=== PATIENT | female | born 2000 | race Caucasian/White ===

== ENCOUNTER 2022-04-15 17:35 | Emergency (ER) | payer OTHER ==
[2022-04-15] MEDS ORDERED: PANTOPRAZOLE 40 MG/10 ML VIAL IVP STA (17:42)
[2022-04-15] MEDS ORDERED: SODIUM CHLORIDE 0.9% 1,000 ML IV STA (17:42)
[2022-04-15] MEDS ORDERED: ONDANSETRON 4 MG/2 ML VIAL IVP STA (17:42)
[2022-04-15] MEDS ORDERED: MORPHINE SULFATE 2 MG/ML SYRINGE IVP STA (17:42)
[2022-04-15 17:46] VITALS: TEMP 97.4
--- NOTE | 2022-04-15 17:50 | ED ---
General Adult HPI - General Chief complaint: Abdominal Pain Stated complaint: Flank pain Time Seen by Provider: 04/15/22 17:42 Source: patient, EMS, RN notes reviewed, old records reviewed Mode of arrival: EMS Limitations: no limitations - History of Present Illness Initial comments: Patient is a 21-year-old female who presents emergency Department complaining of sudden onset right sided flank and abdominal pain. Patient states she was shopping at [employer] when suddenly she experienced acute right lower quadrant and right flank sharp, throbbing abdominal pain. She states it was so bad that she do some the ground. EMS was called and she was brought here for evaluation. Received Toradol and route to the hospital. Nurses mild nausea associated with the pain. Denies any other associated symptoms. States she has had no other symptoms at home prior to the sudden onset of the pain. Denies history of chest pain, shortness breath, other abdominal pain. Has had no dysuria or hematuria. Denies being . Has had no vaginal discharge or bleeding. Uncertain of LMP. Denies diarrhea. His no other acute complaints at this time. Patient states the pain is improving at this time, however she is uncertain what may have caused the pain. Denies any known history of ovarian cyst. No significant past medical history otherwise. - Related Data Allergies Allergy/AdvReac Type Severity Reaction Status Date / Time ibuprofen [From Motrin] Allergy Rash/Hives Verified 04/15/22 17:47 Penicillins Allergy Rash/Hives Verified 04/15/22 17:47 Review of Systems ROS Statement: Those systems with pertinent positive or pertinent negative responses have been documented in the HPI. Review of Systems: CONST: Denies fever EYES: Denies blurry vision ENT: Denies nasal congestion C/V: Denies Chest pain RESP: Denies shortness of breath GI: Endorses abdominal pain. : Denies dysuria SKIN: Denies rash. MSK: Denies joint pain. NEURO: Denies headache ROS Other: All systems not noted in ROS Statement are negative. Past Medical History Past Medical History: Asthma History of Any Multi-Drug Resistant Organisms: None Reported Additional Past Surgical History / Comment(s): Eye surgery. Smoking Status: Current every day smoker Past Alcohol Use History: None Reported Past Drug Use History: None Reported General Exam - General Exam Comments Initial Comments: General: Appears in mild distress secondary to abdominal pain.. HEAD: Normal with no signs of head trauma. EYES: PERRLA, EOMI, conjunctiva normal, no discharge. ENT: Hearing grossly intact, normal oropharynx. RESPIRATORY: Clear breath sounds bilaterally. No wheezes, rales, or rhonchi. C/V: Regular rate and rhythm. S1 and S2 auscultated, no edema, peripheral pulses 2+ and intact throughout ABD: Abdomen is soft, nondistended. Mild tenderness to palpation in the right flank primarily. McBurney's point negative. Mild right adnexal tenderness. No guarding. No peritoneal signs. No rebound tenderness. No CVA tenderness to percussion. EXT: Normal range of motion, no obvious deformity SKIN: No rashes or lesions observed on exposed skin. NEURO: Alert and oriented 4. Limitations: no limitations Course Vital Signs 04/15/22 17:37 Temperature 97.4 F L Pulse Rate 74 Respiratory 20 Rate Blood Pressure 105/69 O2 Sat by Pulse 100 Oximetry Medical Decision Making - Medical Decision Making Based on the patient's presentation and physical exam, I am concerned for acute intra-abdominal process for current symptoms. Differential includes possible torsion versus kidney stone versus other etiology. She'll be symptomatically treated and we will obtain abdominal laboratory studies. We will obtain an ultrasound to evaluate for torsion as well as an ultrasound to evaluate for hydronephrosis. She was in agreement this plan. Vital signs within normal l imits and stable at this time. Patient's laboratory studies are remarkable for a slightly elevated lactic acid of 2.7 which is likely secondary to dehydration. Remainder the labs are unremarkable. This includes a negative test. Urinalysis is still pending at this time. Patient will be administered additional IV fluids as well as awaiting the pelvic ultrasound, however renal ultrasound shows very mild hydronephrosis on the right side. Abdominal x-ray shows no acute intra-abdominal process. On reevaluation, patient's vital signs remained within normal limits and she states her pain has mostly improved. Patient's family now presents. Family states that there is a history of kidney stones in the family. No other significant history. Patient's ultrasound showed no signs of torsion. Pelvic ultrasound within normal limits. On reevaluation, patient's pain has completely resolved. She is symptom free. Urine is still pending at this time. I discussed with family members that due to her negative workup, including symptom being symptom free at this time I believe it is safer to be discharged home with follow-up. They were in agreement this plan. We will check urine prior to discharge.She does have a mild hydronephrosis which could represent a small kidney stone, however it is not large enough to be causing significant issues at this time.Patient's urin alysis was not run due to a small sample of urine. His patient is currently asymptomatic, with no dysuria, hematuria, other urinary symptoms at this time. I did discuss with her as well as her mother and an agreement was made that she can follow up with her PCP if there is any concern. They were in agreement this plan. Strict return precautions including nausea, vomiting, fevers, intractable pain. I believe it is safer to be discharged home at this time. We discussed that it is possible she may have had a small kidney stone at the very slight hydronephrosis on the right side, otherwise workup is unremarkable. Patient is completely pain-free since early on in her stay. I instructed the patient to follow up with their PCP in the next 3 days. I explained that the patient should return to the emergency department if they experience any worsening symptoms. Strict return precautions were discussed with the patient. The patient expressed understanding of these instructions. I answered all questions that the patient had. The patient was discharged home in good condition with their prescriptions and follow up information. - Lab Data Result diagrams: 04/15/22 17:50 04/15/22 17:50 Lab Results 04/15/22 04/15/22 04/15/22 Range/Units 17:50 17:50 17:50 WBC 9.1 (4.0-11.0) k/uL RBC 4.61 (3.80-5.40) m/uL Hgb 14.1 (11.4-16.0) gm/dL Hct 42.9 (34.0-46.0) % MCV 93.1 (80.0-100.0) fL MCH 30.6 (25.0-35.0) pg MCHC 32.9 (31.0-37.0) g/dL RDW 12.7 (11.5-15.5) % Plt Count 280 (150-450) k/uL MPV 9.3 Neutrophils % 62 % Lymphocytes % 30 % Monocytes % 4 % Eosinophils % 1 % Basophils % 1 % Neutrophils # 5.6 (1.3-7.7) k/uL Lymphocytes # 2.8 (1.0-4.8) k/uL Monocytes # 0.4 (0-1.0) k/uL Eosinophils # 0.1 (0-0.7) k/uL Basophils # 0.0 (0-0.2) k/uL PT 11.6 (9.0-12.0) sec INR 1.1 (<1.2) APTT 22.4 (22.0-30.0) sec Sodium 139 (137-145) mmol/L Potassium 4.1 (3.5-5.1) mmol/L Chloride 111 H (98-107) mmol/L Carbon Dioxide 18 L (22-30) mmol/L Anion Gap 10 mmol/L BUN 16 (7-17) mg/dL Creatinine 1.04 (0.52-1.04) mg/dL Est GFR (CKD-EPI)AfAm 90 (>60 ml/min/1.73 sqM) Est GFR (CKD-EPI)NonAf 78 (>60 ml/min/1.73 sqM) Glucose 124 H (74-99) mg/dL Lactic Ac Sepsis Rflx Plasma Lactic Acid Hector (0.7-2.0) mmol/L Calcium 9.2 (8.4-10.2) mg/dL Total Bilirubin 0.5 (0.2-1.3) mg/dL AST 25 (14-36) U/L ALT 16 (4-34) U/L Alkaline Phosphatase 66 (38-126) U/L Total Protein 6.6 (6.3-8.2) g/dL Albumin 4.1 (3.5-5.0) g/dL Amylase 42 (30-110) U/L Lipase 109 (23-300) U/L HCG, Qual Not Detected 04/15/22 04/15/22 Range/Units 17:50 18:26 WBC (4.0-11.0) k/uL RBC (3.80-5.40) m/uL Hgb (11.4-16.0) gm/dL Hct (34.0-46.0) % MCV (80.0-100.0) fL MCH (25.0-35.0) pg MCHC (31.0-37.0) g/dL RDW (11.5-15.5) % Plt Count (150-450) k/uL MPV Neutrophils % % Lymphocytes % % Monocytes % % Eosinophils % % Basophils % % Neutrophils # (1.3-7.7) k/uL Lymphocytes # (1.0-4.8) k/uL Monocytes # (0-1.0) k/uL Eosinophils # (0-0.7) k/uL Basophils # (0-0.2) k/uL PT (9.0-12.0) sec INR (<1.2) APTT (22.0-30.0) sec Sodium (137-145) mmol/L Potassium (3.5-5.1) mmol/L Chloride (98-107) mmol/L Carbon Dioxide (22-30) mmol/L Anion Gap mmol/L BUN (7-17) mg/dL Creatinine (0.52-1.04) mg/dL Est GFR (CKD-EPI)AfAm (>60 ml/min/1.73 sqM) Est GFR (CKD-EPI)NonAf (>60 ml/min/1.73 sqM) Glucose (74-99) mg/dL Lactic Ac Sepsis Rflx Y Plasma Lactic Acid Hector 2.7 H* (0.7-2.0) mmol/L Calcium (8.4-10.2) mg/dL Total Bilirubin (0.2-1.3) mg/dL AST (14-36) U/L ALT (4-34) U/L Alkaline Phosphatase (38-126) U/L Total Protein (6.3-8.2) g/dL Albumin (3.5-5.0) g/dL Amylase (30-110) U/L Lipase (23-300) U/L HCG, Qual Disposition Clinical Impression: Abdominal pain of unknown etiology Disposition: HOME SELF-CARE Condition: Good Instructions (If sedation given, give patient instructions): Abdominal Pain (ED) Is patient prescribed a controlled substance at d/c from ED?: No Referrals: Ky Jesus MD [Primary Care Provider] - 1-2 days Time of Disposition: 20:20
[2022-04-15 18:05] LABS: Basophils % (A) 1 %; Eosinophils # (A) 0.1 k/uL (0-0.7); Eosinophils % (A) 1 %; HCT 42.9 % (34.0-46.0); HGB 14.1 gm/dL (11.4-16.0); Lymphocytes # (A) 2.8 k/uL (1.0-4.8); Lymphocytes % (A) 30 %; MCH 30.6 pg (25.0-35.0); MCHC 32.9 g/dL (31.0-37.0); MCV 93.1 fL (80.0-100.0); Mean Platelet Volume 9.3; Monocytes # (A) 0.4 k/uL (0-1.0); Monocytes % (A) 4 %; Neutrophils # (A) 5.6 k/uL (1.3-7.7); Neutrophils % (A) 62 %; Platelet Count 280 k/uL (150-450); RBC 4.61 m/uL (3.80-5.40); RDW 12.7 % (11.5-15.5); WBC 9.1 k/uL (4.0-11.0)
[2022-04-15] MEDS ORDERED: SODIUM CHLORIDE 0.9% 500 ML 500 ML IV STA (18:18)
[2022-04-15 18:19] LABS: ALT 16 U/L (4-34); AST 25 U/L (14-36); African American GFR (CKD) 90 (>60 ml/min/1.73 sqM); Albumin 4.1 g/dL (3.5-5.0); Alkaline Phosphatase 66 U/L (38-126); Amylase 42 U/L (30-110); Anion Gap 10 mmol/L; Blood Urea Nitrogen 16 mg/dL (7-17); Calcium 9.2 mg/dL (8.4-10.2); Carbon Dioxide 18 mmol/L (22-30); Chloride 111 mmol/L (98-107); Glucose 124 mg/dL (74-99); Lipase 109 U/L (23-300); Non-African American GFR(CKD) 78 (>60 ml/min/1.73 sqM); Potassium 4.1 mmol/L (3.5-5.1); Sodium 139 mmol/L (137-145); Total Bilirubin 0.5 mg/dL (0.2-1.3); Total Protein 6.6 g/dL (6.3-8.2)
[2022-04-15 18:20] LABS: HCG,Qualitative Serum Not Detected
[2022-04-15 18:22] LABS: INR 1.1 (<1.2); Partial Thromboplastin Time 22.4 sec (22.0-30.0); Prothrombin Time 11.6 sec (9.0-12.0)
--- NOTE | 2022-04-15 18:33 | US ---
EXAMINATION TYPE: US renals and bladder DATE OF EXAM: 04/15/2022 COMPARISON: NONE CLINICAL HISTORY: right sided pain/flank pain. eval for hydroneph. acute onset of right flank/pelvic pain tonight, family h/o renal stones EXAM MEASUREMENTS: Right Kidney: 10.0 x 4.7 x 4.5 cm Left Kidney: 10.9 x 4.8 x 4.3 cm Right Kidney: Mild hydronephrosis Left Kidney: No hydronephrosis or masses seen Bladder: not distended IMPRESSION: No evidence of a renal mass. There is some minimal right-sided hydronephrosis.
--- NOTE | 2022-04-15 18:37 | XR ---
EXAMINATION TYPE: XR KUB DATE OF EXAM: 04/15/2022 COMPARISON: NONE HISTORY: Pain TECHNIQUE: 2 views FINDINGS: 2 views upright show no sign of intestinal obstruction or pneumoperitoneum. Fecal pattern i s normal. No evidence of a mass. There are no pathologic calcifications over the kidneys. IMPRESSION: Nonacute abdomen.
--- NOTE | 2022-04-15 19:31 | US ---
EXAMINATION TYPE: US pelvic complete DATE OF EXAM: 04/15/2022 COMPARISON: NONE CLINICAL HISTORY: sudden onset right sided pain, eval for torsion. rt flank pain that extends to pelv is, G0, irregular cycles TECHNIQUE: TA. Transabdominal sonographic images of the pelvis were acquired. Patient is not sexua lly active, patient is on Morphine and states she really has to pee, bladder not fully distended, Date of LMP: unknown EXAM MEASUREMENTS: Uterus: 6.3 x 3.7 x 3.3 cm Endometrial Stripe: 0.6 cm Right Ovary: 3.8 x 2.9 x 2.1 cm Left Ovary: 3.1 x 2.2 x 1.7 cm 1. Uterus: Anteverted wnl 2. Endometrium: wnl 3. Right Ovary: wnl 4. Left Ovary: 2.0 dominate follicle versus small cyst Spectral, color and waveform doppler imaging shows good arterial and venous flow within the ovaries ; there is no evidence for ovarian torsion. 5. Bilateral Adnexa: wnl 6. Posterior cul-de-sac: wnl IMPRESSION: No solid adnexal mass or free fluid. No evidence of ovarian torsion. Normal uterus.
[2022-04-15 20:47] VITALS: BP 119/79; PULSE 75; RESP 18
== END 2022-04-15 20:49 | disposition home or self-care (01) ==
LOC: EC 17:35
DX: R10.9 Unspecified abdominal pain (principal); J45.909 Unspecified asthma, uncomplicated; F17.200 Nicotine dependence, unspecified, uncomplicated; Z88.0 Allergy status to penicillin; Z88.6 Allergy status to analgesic agent
CPT/HCPCS: 99284; 96374; 96375; 96361; 36415; 80053; 82150; 83605; 83690; 85025; 85610; 85730; 84703; 74018; 93975; 76856; 76770; J2405; J2270; C9113

== ENCOUNTER 2023-08-07 09:23 | Emergency (ER) | payer OTHER ==
[2023-08-07 09:46] VITALS: RESP 18
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
[2023-08-07 10:57] VITALS: PULSE 72; TEMP 98.1
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
[2023-08-07 11:32] VITALS: BP 108/74
== END 2023-08-07 11:25 | disposition home or self-care (01) ==
LOC: EC 09:23
DX: S80.02XA Contusion of left knee, initial encounter (principal); S20.212A Contusion of left front wall of thorax, initial encounter; S50.312A Abrasion of left elbow, initial encounter; M54.2 Cervicalgia; J45.909 Unspecified asthma, uncomplicated; F17.200 Nicotine dependence, unspecified, uncomplicated; Z88.0 Allergy status to penicillin; Z88.6 Allergy status to analgesic agent; V49.40XA Driver injured in collision with unspecified motor vehicles in traffic accident, initial encounter; Y92.410 Unspecified street and highway as the place of occurrence of the external cause
CPT/HCPCS: 70450; 71045; 72125; 99284

== ENCOUNTER 2023-09-28 13:13 | Emergency (ER) | payer OTHER ==
[2023-09-28] MEDS ORDERED: ALBUTEROL NEBULIZED 2.5 MG/3 ML INHALATION STA (13:39)
[2023-09-28] MEDS ORDERED: predniSONE 20 MG TAB PO STA (13:39)
[2023-09-28] MEDS ORDERED: IPRATROPIUM-ALBUTEROL 3 ML NEB INHALATION STA (13:39)
[2023-09-28 13:42] VITALS: BP 137/88; TEMP 97.4
--- NOTE | 2023-09-28 13:56 | XR ---
EXAMINATION TYPE: XR chest 2V DATE OF EXAM: 09/28/2023 COMPARISON: 08/07/23 HISTORY: Chest pain TECHNIQUE: Frontal and lateral views of the chest are obtained. FINDINGS: There is no focal air space opacity. No evidence for pneumothorax. No pleural effusion. The cardiac silhouette size is within normal limits. The osseous structures are grossly intact. IMPRESSION: 1. No acute cardiopulmonary process.
--- NOTE | 2023-09-28 15:11 | ED ---
SOB HPI - General Chief Complaint: Shortness of Breath Stated Complaint: LUIS,Asthma Time Seen by Provider: 09/28/23 13:25 Source: patient Mode of arrival: ambulatory Limitations: no limitations - History of Present Illness Initial Comments: 23-year-old female with past medical history of mild intermittent asthma who presents emergency department reporting asthma exacerbation. States that her breathing has been worse for the past 2 days. She does have a rescue inhaler which she has been using throughout the day without any improvement in her symptoms. She normally only uses the inhaler when needed. She also takes Symbicort. She denies any new environmental exposures. Admits to a mild nonproductive cough. No sick contacts. No fevers. Denies any chest pain. She has never been hospitalized for her breathing. She has never been on life support. She does not follow with a judge. No use of steroids that she can remember. No current use of antibiotics. Denies any concern for . No other alleviating, precipitating or modifying factors - Related Data Previous Rx's Medication Instructions Recorded Albuterol Inhaler [Ventolin Hfa 2 puff INHALATION Q4HR #1 each 09/28/23 Inhaler] predniSONE [Deltasone] 20 mg PO BID #10 tab 09/28/23 Allergies Allergy/AdvReac Type Severity Reaction Status Date / Time ibuprofen [From Motrin] Allergy Rash/Hives Verified 09/28/23 13:18 Penicillins Allergy Rash/Hives Verified 09/28/23 13:18 Review of Systems ROS Statement: Those systems with pertinent positive or pertinent negative responses have been documented in the HPI. ROS Other: All systems not noted in ROS Statement are negative. Past Medical History Past Medical History: Asthma History of Any Multi-Drug Resistant Organisms: None Reported Additional Past Surgical History / Comment(s): Eye surgery. Past Psychological History: No Psychological Hx Reported Smoking Status: Current every day smoker Past Alcohol Use History: None Reported Past Drug Use History: None Reported General Exam Limitations: no limitations General appearance: alert, in no apparent distress Head exam: Present: atraumatic, normocephalic, normal inspection Eye exam: Present: normal appearance, PERRL, EOMI. Absent: scleral icterus, conjunctival injection, periorbital swelling ENT exam: Present: normal exam, mucous membranes moist Neck exam: Present: normal inspection. Absent: tenderness, meningismus, lymphadenopathy Respiratory exam: Present: wheezes (At the apices), decreased breath sounds (At the bases). Absent: respiratory distress, rales, rhonchi, stridor Cardiovascular Exam: Present: regular rate, normal rhythm, normal heart sounds. Absent: systolic murmur, diastolic murmur, rubs, gallop, clicks GI/Abdominal exam: Present: soft, normal bowel sounds. Absent: distended, tenderness, guarding, rebound, rigid Extremities exam: Present: normal inspection, full ROM, normal capillary refill. Absent: tenderness, pedal edema, joint swelling, calf tenderness Back exam: Present: normal inspection Neurological exam: Present: alert, oriented X3, CN II-XII intact Psychiatric exam: Present: normal affect, normal mood Skin exam: Present: warm, dry, intact, normal color. Absent: rash Course Vital Signs 09/28/23 09/28/23 09/28/23 13:15 14:30 14:45 Temperature 97.4 F L Pulse Rate 84 87 99 Respiratory 20 Rate Blood Pressure 137/88 O2 Sat by Pulse 98 Oximetry 09/28/23 15:26 Temperature Pulse Rate 87 Respiratory 18 Rate Blood Pressure O2 Sat by Pulse 97 Oximetry Medical Decision Making - Medical Decision Making Was pt. sent in by a medical professional or institution (, PA, MICROPHONE OPERATOR, urgent care, hospital, or longterm...) When possible be specific @ -No Did you speak to anyone other than the patient for history (EMS, parent, family, police, friend...)? What history was obtained from this source @ -No Did you review nursing and triage notes (agree or disagree)? Why? @ -I reviewed and agree with nursing and triage notes Were old charts reviewed (outside hosp., previous admission, EMS record, old EKG, old radiological studies, urgent care reports/EKG's, longterm records)? Report findings @ -No old charts were reviewed Differential Diagnosis (chest pain, altered mental status, abdominal pain women, abdominal pain men, vaginal bleeding, weakness, fever, dyspnea, syncope, headache, dizziness, GI bleed, back pain, seizure, CVA, palpatations, mental health, musculoskeletal)? @ Differential Dyspnea: Coronary syndrome, arrhythmia, tamponade, asthma, COPD, pulmonary embolism, pneumonia, pneumothorax, pulmonary effusion, anaphylaxis, diabetic ketoacidosis, flailed chest, pulmonary contusion, diaphragmatic rupture, anemia, neuromuscular, this is not meant to be an all-inclusive list. EKG interpreted by me (3pts min.). @ -Not done X-rays interpreted by me (1pt min.). @ -Yes and demonstrates no acute intrathoracic process CT interpreted by me (1pt min.). @ -None done U/S interpreted by me (1pt. min.). @ -None done What testing was considered but not performed or refused? (CT, X-rays, U/S, labs)? Why? @ -None What meds were considered but not given or refused? Why? @ -None Did you discuss the management of the patient with other professionals (professionals i.e. , PA, MICROPHONE OPERATOR, lab, RT, psych nurse, neonatal social worker, jack machine operator, teacher, control officer, disability case manager)? Give summary @ -No Was smoking cessation discussed for >3mins.? @ -No Was critical care preformed (if so, how long)? @ -No Were there social determinants of health that impacted care today? How? (Homelessness, low income, unemployed, alcoholism, drug addiction, transportation, low edu. Level, literacy, decrease access to med. care, nursing home, rehab)? @ -No Was there de-escalation of care discussed even if they declined (Discuss DNR or withdrawal of care, Hospice)? DNR status @ -No What co-morbidities impacted this encounter? (DM, HTN, Smoking, COPD, CAD, Cancer, CVA, ARF, Chemo, Hep., AIDS, mental health diagnosis, sleep apnea, morbid obesity)? @ -asthma Was patient admitted / discharged? Hospital course, mention meds given and route, prescriptions, significant lab abnormalities, going to OR and other pertinent info. @ -Upon arrival patient was placed into room 29. Thorough history and physical exam was performed. Patient does have wheezing at the apex with diminished breath sounds at the bases. She was given a DuoNeb breathing treatment followed by an OB drop treatment. She is administered 60 mg of prednisone. Covid is obtained and is negative. Chest x-ray demonstrates no acute process. Patient reevaluated and states that she has improvement in her breathing. She does have improved aeration. I did discuss the results with the patient. At this time she is stable for discharge home. She'll be placed on prednisone 20 mg twice daily which she is to start tomorrow. She is to use her inhaler which I will refill every 4 hours. Instructed to return should she have no improvement or worsening symptoms. Patient agreeable to the plan and was discharged in stable condition Undiagnosed new problem with uncertain prognosis? @ -No Drug Therapy requiring intensive monitoring for toxicity (Heparin, Nitro, In sulin, Cardizem)? @ -No Were any procedures done? @ -No Diagnosis/symptom? @ -Acute asthma exacerbation Acute, or Chronic, or Acute on Chronic? @ -Acute on chronic Uncomplicated (without systemic symptoms) or Complicated (systemic symptoms)? @ -Complicated Side effects of treatment? @ -No Exacerbation, Progression, or Severe Exacerbation? @ -Yes Poses a threat to life or bodily function? How? (Chest pain, [place], [place], pneumonia, PE, COPD, DKA, ARF, appy, cholecystitis, CVA, Diverticulitis, Homicidal, Suicidal, threat to staff... and all critical care pts) @ -No - Lab Data Lab Results 09/28/23 Range/Units 13:44 SARS-CoV-2 (PCR) Not Detected (Not Detectd) Disposition Clinical Impression: Acute asthma exacerbation Disposition: HOME SELF-CARE Condition: Stable Instructions (If sedation given, give patient instructions): Asthma (ED) Additional Instructions: Use your inhaler every 4 hours. Start taking the steroids tomorrow as you got you're loading dose in the emergency department. Return should your breathing worsen. Prescriptions: predniSONE [Deltasone] 20 mg PO BID #10 tab Albuterol Inhaler [Ventolin Hfa Inhaler] 2 puff INHALATION Q4HR #1 each Is patient prescribed a controlled substance at d/c from ED?: No Referrals: None,Stated [Primary Care Provider] - 1-2 days Time of Disposition: 15:11
[2023-09-28 15:49] VITALS: PULSE 87; RESP 18
== END 2023-09-28 15:26 | disposition home or self-care (01) ==
LOC: EC 13:13
DX: J45.21 Mild intermittent asthma with (acute) exacerbation (principal); F17.200 Nicotine dependence, unspecified, uncomplicated; Z20.822 Contact with and (suspected) exposure to COVID-19; Z88.0 Allergy status to penicillin; Z88.6 Allergy status to analgesic agent
CPT/HCPCS: 94640; 87635; 71046; 99285; J7512

== ENCOUNTER 2023-10-01 19:40 | Emergency (ER) | payer OTHER ==
--- NOTE | 2023-10-01 20:05 | ED ---
SOB HPI - General Source: patient, RN notes reviewed Mode of arrival: ambulatory Limitations: no limitations - History of Present Illness MD Complaint: shortness of breath <Morena Syed - Last Filed: 10/01/23 20:06> - General Source: patient, family, RN notes reviewed <Levar Dueñas - Last Filed: 10/02/23 01:54> - General Chief Complaint: Shortness of Breath Stated Complaint: sob Time Seen by Provider: 10/01/23 20:02 - History of Present Illness Initial Comments: This is a 23 year old female who presents to the emergency department for shortness of breath. States that she was evaluated here for this a few days ago. She has a history of asthma and is using her rescue inhaler, however this is only effective for about 10 minutes at a time, and then she becomes very winded again. Reports some associated chest discomfort. (Morena Syed) Patient is a 23-year-old female initially evaluated as a quick note. I evaluated the patient when she was placed in a room. Has a history of asthma that is mild and intermittent. Since last she's been feeling more short of breath. Was diagnosed with an asthma exacerbation on Saturday discharged home. However since that time, she states that she does not feel like her inhaler is working. States she gets dyspnea on exertion. States she is having generalized chest tightness as well. Does have a history of anxiety. Is uncertain of this is anxiety causing this. No history of cardiac disease in herself. No history of blood clots, recent long distance travel, leg edema. Presents for further evaluation of this time. Patient originally evaluated as a quick note. I evaluated the patient when she is placed in [facility] after initial viral swabs returned as well as chest x-ray. (Levar Dueñas) - Related Data Previous Rx's Medication Instructions Recorded Albuterol Inhaler [Ventolin Hfa 2 puff INHALATION Q4HR #1 each 09/28/23 Inhaler] predniSONE [Deltasone] 20 mg PO BID #10 tab 09/28/23 Albuterol Inhaler [Ventolin Hfa 1 puff INHALATION QID #8 gm 10/02/23 Inhaler] Azithromycin [Zithromax] 250 mg PO DAILY 4 Days #4 tab 10/02/23 predniSONE [Deltasone] 20 mg PO BID 5 Days #10 tab 10/02/23 Allergies Allergy/AdvReac Type Severity Reaction Status Date / Time ibuprofen [From Motrin] Allergy Rash/Hives Verified 10/01/23 20:04 Penicillins Allergy Rash/Hives Verified 10/01/23 20:04 Review of Systems ROS Other: All systems not noted in ROS Statement are negative. <Morena Syed - Last Filed: 10/01/23 20:06> ROS Other: All systems not noted in ROS Statement are negative. <Levar Dueñas - Last Filed: 10/02/23 01:54> ROS Statement: Those systems with pertinent positive or pertinent negative responses have been documented in the HPI. Review of Systems: CONST: Denies fever EYES: Denies blurry vision ENT: Denies nasal congestion C/V: Denies Chest pain RESP: Endorses shortness of breath GI: Denies abdominal pain : Denies dysuria SKIN: Denies rash. MSK: Denies joint pain. NEURO: Denies headache (Levar Dueñas) Past Medical History Past Medical History: Asthma History of Any Multi-Drug Resistant Organisms: None Reported Additional Past Surgical History / Comment(s): Eye surgery. Past Psychological History: No Psychological Hx Reported Smoking Status: Current every day smoker Past Alcohol Use History: None Reported Past Drug Use History: None Reported <Morena Syed - Last Filed: 10/01/23 20:06> General Exam <Morena Syed - Last Filed: 10/01/23 20:06> <Levar Dueñas - Last Filed: 10/02/23 01:54> - General Exam Comments Initial Comments: Visual Physical Exam Vital signs reviewed General: Well-appearing, nontoxic, no acute distress. Head: Normocephalic, atraumatic Eyes: PERRLA, EOMI ENT: Airway patent Chest: Nonlabored breathing Skin: No visual rash, normal skin tone Neuro: Alert and oriented 3 Musculoskeletal: No gross abnormalities (Morena Syed) General: Appears anxious. HEAD: Normal with no signs of head trauma. EYES: PERRLA, EOMI, conjunctiva normal, no discharge. ENT: Hearing grossly intact, normal oropharynx. RESPIRATORY: Mild bilateral end expiratory wheezing. No rhonchi. No hypoxia. No ambulatory hypoxia. No significant increased work of breathing. C/V: Regular rate and rhythm. S1 and S2 auscultated, no edema, peripheral pulses 2+ and intact throughout ABD: Abd is soft, nontender, nondistended EXT: Normal range of motion, no obvious deformity SKIN: No rashes or lesions observed on exposed skin. NEURO: Alert and oriented 4. (Levar Dueñas) Course Vital Signs 10/01/23 10/01/23 10/02/23 20:02 22:09 00:07 Temperature 98.0 F 97.7 F Pulse Rate 73 67 76 Respiratory 20 22 Rate Blood Pressure 123/80 124/83 O2 Sat by Pulse 96 98 Oximetry 10/02/23 00:14 Temperature Pulse Rate 88 Respiratory Rate Blood Pressure O2 Sat by Pulse Oximetry Medical Decision Making <Morena Syed - Last Filed: 10/01/23 20:06> - Lab Data Result diagrams: 10/01/23 22:40 10/01/23 22:40 - EKG Data -: EKG Interpreted by Me <Levar Dueñas - Last Filed: 10/02/23 01:54> - Medical Decision Making I performed the QuickNote portion of this chart. Signed Morena Syed PA-C. (Morena Syed) Was pt. sent in by a medical professional or institution (INDIRA Major, HYDRAULIC CORRUGATING MACHINE OPERATOR, urgent care, hospital, or skilled nursing...) When possible be specific @ -No Did you speak to anyone other than the patient for history (EMS, parent, family, police, friend...)? What history was obtained from this source @ -No Did you review nursing and triage notes (agree or disagree)? Why? @ -I reviewed and agree with nursing and triage notes Were old charts reviewed (outside hosp., previous admission, EMS record, old EKG, old radiological studies, urgent care reports/EKG's, skilled nursing records)? Report findings @ -Old charts reviewed Differential Diagnosis (chest pain, altered mental status, abdominal pain women, abdominal pain men, vaginal bleeding, weakness, fever, dyspnea, syncope, h eadache, dizziness, GI bleed, back pain, seizure, CVA, palpatations, mental health, musculoskeletal)? @ -Differential dyspnea EKG interpreted by me (3pts min.). @ -As above X-rays interpreted by me (1pt min.). @ -Chest x-ray reveals no obvious acute cardiopulmonary process. CT interpreted by me (1pt min.). @ -None done U/S interpreted by me (1pt. min.). @ -None done What testing was considered but not performed or refused? (CT, X-rays, U/S, labs)? Why? @ -None What meds were considered but not given or refused? Why? @ -None Did you discuss the management of the patient with other professionals (professionals i.e. , PA, HYDRAULIC CORRUGATING MACHINE OPERATOR, lab, RT, psych nurse, manager social work, frame bender, teacher, senior escrow officer, community case manager)? Give summary @ -No Was smoking cessation discussed for >3mins.? @ -No Was critical care preformed (if so, how long)? @ -No Were there social determinants of health that impacted care today? How? (Home lessness, low income, unemployed, alcoholism, drug addiction, transportation, low edu. Level, literacy, decrease access to med. care, halfway, rehab)? @ -No Was there de-escalation of care discussed even if they declined (Discuss DNR or withdrawal of care, Hospice)? DNR status @ -No What co-morbidities impacted this encounter? (DM, HTN, Smoking, COPD, CAD, Cancer, CVA, ARF, Chemo, Hep., AIDS, mental health diagnosis, sleep apnea, morbid obesity)? @ -None Was patient admitted / discharged? Hospital course, mention meds given and route, prescriptions, significant lab abnormalities, going to OR and other pertinent info. @ -Based on the patient's presentation and physical exam, I'm concerned for what seems to be asthma and possible anxiety causing her dyspnea. Exam is relatively unremarkable. Has mild wheezing on exam. Her description of her distress as well as her frequency of using albuterol over the last few days seems to be out of proportion to her describes dyspnea. I did discuss this with her. It could be anxiety is really related to this however I cannot definitively rule out cardiopulmonary etiology. We will obtain blood work as well as an EKG in addition to the chest x-ray which showed no obvious process as well as viral swabs which were negative. She will receive an albuterol inhaler at this time as well. Patient was in agreement this plan. She has been compliant with her steroids at home as well as her inhaler. She will also rec eive a small dose of Ativan. EKG shows no focal findings. No obvious acute ischemia. Workup remarkable for mild leukocytosis of 14 which is likely reactive secondary to daily steroid use. No other findings. Troponin undetectable. BNP normal. D-dimer within normal limits. On reevaluation, I discussed results the patient. She received a DuoNeb. Wheezing is improved. I believe it is safe for her to follow-up with her physician in the next 1-3 days. Strict return precautions discussed. She was in agreement with this plan. I will provide the patient with a prescription for albuterol inhaler, extended prednisone, azithromycin. I instructed the patient to follow up with their PCP in the next 1-3 days . I explained that the patient should return to the emerge ncy department if they experience any worsening symptoms. Strict return precautions were discussed with the patient. The patient expressed understanding of these instructions. I answered all questions that the patient had. The patient was discharged home in good condition with their prescriptions and follow up information. Undiagnosed new problem with uncertain prognosis? @ -No Drug Therapy requiring intensive monitoring for toxicity (Heparin, Nitro, Insulin, Cardizem)? @ -No Were any procedures done? @ -No Diagnosis/symptom? @ -Asthma, tracheobronchitis Acute, or Chronic, or Acute on Chronic? @ -Acute Uncomplicated (without systemic symptoms) or Complicated (systemic symptoms)? @ -complicated Side effects of treatment? @ -none Exacerbation, Progression, or Severe Exacerbation] @ -no Poses a threat to life or bodily function? @ -Unlikely (Levar Dueñas) - Lab Data Lab Results 10/01/23 10/01/23 10/01/23 Range/Units 20:34 22:40 22:40 WBC 14.5 H (3.8-10.6) k/uL RBC 5.55 H (3.80-5.40) m/uL Hgb 16.9 H (11.4-16.0) gm/dL Hct 50.5 H (34.0-46.0) % MCV 90.9 (80.0-100.0) fL MCH 30.3 (25.0-35.0) pg MCHC 33.4 (31.0-37.0) g/dL RDW 12.5 (11.5-15.5) % Plt Count 330 (150-450) k/uL MPV 8.7 Neutrophils % 89 % Lymphocytes % 8 % Monocytes % 2 % Eosinophils % 1 % Basophils % 0 % Neutrophils # 12.9 H (1.3-7.7) k/uL Lymphocytes # 1.2 (1.0-4.8) k/uL Monocytes # 0.3 (0-1.0) k/uL Eosinophils # 0.1 (0-0.7) k/uL Basophils # 0.0 (0-0.2) k/uL PT 10.8 (10.0-12.5) sec INR 1.0 (<1.2) APTT 24.4 (22.0-30.0) sec D-Dimer 0.31 (<0.60) mg/L FEU Sodium (137-145) mmol/L Potassium (3.5-5.1) mmol/L Chloride (98-107) mmol/L Carbon Dioxide (22-30) mmol/L Anion Gap mmol/L BUN (7-17) mg/dL Creatinine (0.52-1.04) mg/dL Est GFR (CKD-EPI)AfAm (>60 ml/min/1.73 sqM) Est GFR (CKD-EPI)NonAf (>60 ml/min/1.73 sqM) Glucose (74-99) mg/dL Calcium (8.4-10.2) mg/dL Total Bilirubin (0.2-1.3) mg/dL AST (14-36) U/L ALT (4-34) U/L Alkaline Phosphatase (38-126) U/L Troponin I (0.000-0.034) ng/mL NT-Pro-B Natriuret Pep pg/mL Total Protein (6.3-8.2) g/dL Albumin (3.5-5.0) g/dL Influenza Type A (PCR) Not Detected (Not Detectd) Influenza Type B (PCR) Not Detected (Not Detectd) RSV (PCR) Not Detected (Not Detectd) SARS-CoV-2 (PCR) Not Detected (Not Detectd) 10/01/23 10/01/23 Range/Units 22:40 22:40 WBC (3.8-10.6) k/uL RBC (3.80-5.40) m/uL Hgb (11.4-16.0) gm/dL Hct (34.0-46.0) % MCV (80.0-100.0) fL MCH (25.0-35.0) pg MCHC (31.0-37.0) g/dL RDW (11.5-15.5) % Plt Count (150-450) k/uL MPV Neutrophils % % Lymphocytes % % Monocytes % % Eosinophils % % Basophils % % Neutrophils # (1.3-7.7) k/uL Lymphocytes # (1.0-4.8) k/uL Monocytes # (0-1.0) k/uL Eosinophils # (0-0.7) k/uL Basophils # (0-0.2) k/uL PT (10.0-12.5) sec INR (<1.2) APTT (22.0-30.0) sec D-Dimer (<0.60) mg/L FEU Sodium 140 (137-145) mmol/L Potassium 4.5 (3.5-5.1) mmol/L Chloride 109 H (98-107) mmol/L Carbon Dioxide 15 L (22-30) mmol/L Anion Gap 16 mmol/L BUN 18 H (7-17) mg/dL Creatinine 0.68 (0.52-1.04) mg/dL Est GFR (CKD-EPI)AfAm >90 (>60 ml/min/1.73 sqM) Est GFR (CKD-EPI)NonAf >90 (>60 ml/min/1.73 sqM) Glucose 118 H (74-99) mg/dL Calcium 10.6 H (8.4-10.2) mg/dL Total Bilirubin 0.5 (0.2-1.3) mg/dL AST 22 (14-36) U/L ALT 23 (4-34) U/L Alkaline Phosphatase 76 (38-126) U/L Troponin I <0.012 (0.000-0.034) ng/mL NT-Pro-B Natriuret Pep 59 pg/mL Total Protein 8.9 H (6.3-8.2) g/dL Albumin 5.1 H (3.5-5.0) g/dL Influenza Type A (PCR) (Not Detectd) Influenza Type B (PCR) (Not Detectd) RSV (PCR) (Not Detectd) SARS-CoV-2 (PCR) (Not Detectd) - EKG Data EKG Comments: 12-lead Electrocardiogram Interpretation Note EKG was reviewed and interpreted by myself. 12-lead ECG performed at 2233 is interpreted by me as revealing normal sinus rhythm at a rate of 72 beats per minute. [place] is rightward deviated. MO interval is 133 ms, QRS duration is 90 ms, QTc is 429 ms. generalized Q waves present with no focal pattern.. There were no ST or T wave abnormalities to suggest myocardial ischemia or injury. R wave progression across the precordium was satisfactory. By my interpretation this EKG is non-diagnostic for acute ischemia. (Levar Dueñas) Disposition <Morena Syed - Last Filed: 10/01/23 20:06> Is patient prescribed a controlled substance at d/c from ED?: No Time of Disposition: 00:21 <Levar Dueñas - Last Filed: 10/02/23 01:54> Clinical Impression: Asthma, Tracheobronchitis Disposition: HOME SELF-CARE Condition: Good Instructions (If sedation given, give patient instructions): Asthma (ED), Acute Bronchitis (ED) Prescriptions: predniSONE [Deltasone] 20 mg PO BID 5 Days #10 tab Albuterol Inhaler [Ventolin Hfa Inhaler] 1 puff INHALATION QID #8 gm Azithromycin [Zithromax] 250 mg PO DAILY 4 Days #4 tab Referrals: Kevin Davis MD [Primary Care Provider] - 1-2 days
--- NOTE | 2023-10-01 20:38 | XR ---
EXAMINATION TYPE: XR chest 2V DATE OF EXAM: 10/01/2023 COMPARISON: 09/28/2023 HISTORY: Chest pain TECHNIQUE: Frontal and lateral views of the chest are obtained. FINDINGS: There is no focal air space opacity. No evidence for pneumothorax. No pleural effusion. The cardiac silhouette size is within normal limits. The osseous structures are grossly intact. IMPRESSION: 1. No acute cardiopulmonary process.
[2023-10-01 22:27] VITALS: BP 124/83; RESP 22; TEMP 97.7
[2023-10-01] MEDS ORDERED: ALBUTEROL HFA INHALER INHALATION STA (22:38)
[2023-10-01] MEDS ORDERED: LORazepam 1 MG TAB PO STA (22:40)
[2023-10-01 23:00] LABS: Basophils % (A) 0 %; Eosinophils # (A) 0.1 k/uL (0-0.7); Eosinophils % (A) 1 %; HCT 50.5 % (34.0-46.0); HGB 16.9 gm/dL (11.4-16.0); Lymphocytes # (A) 1.2 k/uL (1.0-4.8); Lymphocytes % (A) 8 %; MCH 30.3 pg (25.0-35.0); MCHC 33.4 g/dL (31.0-37.0); MCV 90.9 fL (80.0-100.0); Mean Platelet Volume 8.7; Monocytes # (A) 0.3 k/uL (0-1.0); Monocytes % (A) 2 %; Neutrophils # (A) 12.9 k/uL (1.3-7.7); Neutrophils % (A) 89 %; Platelet Count 330 k/uL (150-450); RBC 5.55 m/uL (3.80-5.40); RDW 12.5 % (11.5-15.5); WBC 14.5 k/uL (3.8-10.6)
[2023-10-01 23:09] LABS: ALT 23 U/L (4-34); AST 22 U/L (14-36); African American GFR (CKD) >90 (>60 ml/min/1.73 sqM); Albumin 5.1 g/dL (3.5-5.0); Alkaline Phosphatase 76 U/L (38-126); Anion Gap 16 mmol/L; Blood Urea Nitrogen 18 mg/dL (7-17); Calcium 10.6 mg/dL (8.4-10.2); Carbon Dioxide 15 mmol/L (22-30); Chloride 109 mmol/L (98-107); Glucose 118 mg/dL (74-99); Non-African American GFR(CKD) >90 (>60 ml/min/1.73 sqM); Potassium 4.5 mmol/L (3.5-5.1); Sodium 140 mmol/L (137-145); Total Bilirubin 0.5 mg/dL (0.2-1.3); Total Protein 8.9 g/dL (6.3-8.2)
[2023-10-01 23:13] LABS: Partial Thromboplastin Time 24.4 sec (22.0-30.0); Prothrombin Time 10.8 sec (10.0-12.5)
[2023-10-01 23:17] LABS: NT-Pro-B-Type Natriuretic Pept 59 pg/mL
[2023-10-02] MEDS ORDERED: IPRATROPIUM-ALBUTEROL 3 ML NEB INHALATION STA (00:05)
[2023-10-02 00:23] VITALS: PULSE 88
[2023-10-02] MEDS ORDERED: AZITHROMYCIN 500 MG TAB PO STA (00:25)
== END 2023-10-02 00:45 | disposition home or self-care (01) ==
LOC: SUPCPDRO 19:40 → EC 19:40
DX: J40 Bronchitis, not specified as acute or chronic (principal); F17.200 Nicotine dependence, unspecified, uncomplicated; Z88.0 Allergy status to penicillin; Z88.6 Allergy status to analgesic agent; Z20.822 Contact with and (suspected) exposure to COVID-19
CPT/HCPCS: 36415; 71046; 80053; 83880; 84484; 85025; 85379; 85610; 85730; 87636; 93005; 94640; 99285

== ENCOUNTER 2023-11-19 10:09 | Emergency (ER) | payer OTHER ==
--- NOTE | 2023-11-19 10:38 | ED ---
General Adult HPI - General Chief complaint: Head Injury Stated complaint: head injury-[facility] Time Seen by Provider: 11/19/23 10:36 Source: patient, RN notes reviewed Mode of arrival: ambulatory Limitations: no limitations - History of Present Illness Initial comments: 23 year old female presents to the emergency department for evaluation of head injury. Patient states that she was working when this happened about 2 hours ago. She states that she bent down and stood back up hitting the front of her head on a shelf. She denies loss of consciousness, blood thinners. She admits to some slight nausea. Denies significant headache. - Related Data Previous Rx's Medication Instructions Recorded Albuterol Inhaler [Ventolin Hfa 2 puff INHALATION Q4HR #1 each 09/28/23 Inhaler] predniSONE [Deltasone] 20 mg PO BID #10 tab 09/28/23 Albuterol Inhaler [Ventolin Hfa 1 puff INHALATION QID #8 gm 10/02/23 Inhaler] Azithromycin [Zithromax] 250 mg PO DAILY 4 Days #4 tab 10/02/23 predniSONE [Deltasone] 20 mg PO BID 5 Days #10 tab 10/02/23 Allergies Allergy/AdvReac Type Severity Reaction Status Date / Time ibuprofen [From Motrin] Allergy Rash/Hives Verified 11/19/23 10:24 Penicillins Allergy Rash/Hives Verified 11/19/23 10:24 Review of Systems ROS Statement: Those systems with pertinent positive or pertinent negative responses have been documented in the HPI. ROS Other: All systems not noted in ROS Statement are negative. Past Medical History Past Medical History: Asthma History of Any Multi-Drug Resistant Organisms: None Reported Additional Past Surgical History / Comment(s): Eye surgery. Past Psychological History: No Psychological Hx Reported Smoking Status: Current every day smoker Past Alcohol Use History: None Reported Past Drug Use History: None Reported General Exam - General Exam Comments Initial Comments: Visual Physical Exam Vital signs reviewed General: Well-appearing, nontoxic, no acute distress. Head: Normocephalic, atraumatic Eyes: PERRLA, EOMI ENT: Airway patent Chest: Nonlabored breathing Skin: No visual rash, normal skin tone Neuro: Alert and oriented 3 Musculoskeletal: No gross abnormalities Limitations: no limitations General appearance: alert, in no apparent distress Head exam: Present: atraumatic, normocephalic, normal inspection Eye exam: Present: normal appearance, PERRL, EOMI. Absent: scleral icterus, conjunctival injection, periorbital swelling ENT exam: Present: normal exam, mucous membranes moist, TM's normal bilaterally, normal external ear exam Neck exam: Present: normal inspection, full ROM. Absent: tenderness, meningismus, lymphadenopathy Respiratory exam: Present: normal lung sounds bilaterally. Absent: respiratory distress, wheezes, rales, rhonchi, stridor Cardiovascular Exam: Present: regular rate, normal rhythm, normal heart sounds. Absent: systolic murmur, diastolic murmur, rubs, gallop, clicks Extremities exam: Present: normal inspection, full ROM, normal capillary refill. Absent: tenderness, pedal edema, joint swelling, calf tenderness Back exam: Present: normal inspection Neurological exam: Present: alert, oriented X3, CN II-XII intact, normal gait. Absent: motor sensory deficit Expanded Patient oriented to: Present: person, place, time Speech: Present: fluid speech Cranial nerves: EOM's Intact: Normal, Gag Reflex: Normal, Facial Sensation: Normal Ataxia: Absent: yes Cerebellar function: Finger to Nose: Normal Upper motor neuron: Pronator Drift: Normal Sensory exam: Upper Extremity Light Touch: Normal, Lower Extremity Light Touch: Normal Motor strength exam: RUE: 5, LUE: 5, RLE: 5, LLE: 5 Eye Response: (4) open spontaneously Motor Response: (6) obeys commands Verbal Response: (5) oriented David Total: 15 Psychiatric exam: Present: normal affect, normal mood Course Vital Signs 11/19/23 10:22 Temperature 98 F Pulse Rate 81 Respiratory 20 Rate Blood Pressure 108/73 O2 Sat by Pulse 99 Oximetry Medical Decision Making - Medical Decision Making Quick note preformed by Lola Zepeda PA-C Was pt. sent in by a medical professional or institution ([facility] Major, MEDICATION ASSISTANT, urgent care, hospital, or custodial...) When possible be specific @ -No Did you speak to anyone other than the patient for history (EMS, parent, family, police, friend...)? What history was obtained from this source @ -No Did you review nursing and triage notes (agree or disagree)? Why? @ -I reviewed and agree with nursing and triage notes Were old charts reviewed (outside hosp., previous admission, EMS record, old EKG, old radiological studies, urgent care reports/EKG's, custodial records)? Report findings @ -No old charts were reviewed Differential Diagnosis (chest pain, altered mental status, abdominal pain women, abdominal pain men, vaginal bleeding, weakness, fever, dyspnea, syncope, headache, dizziness, GI bleed, back pain, seizure, CVA, palpatations, mental health, musculoskeletal)? @ -Head injury, concussion, laceration, intracranial hemorrhage, this list is not all-inclusive EKG interpreted by me (3pts min.). @ -none X-rays interpreted by me (1pt min.). @ -None done CT interpreted by me (1pt min.). @ -None done U/S interpreted by me (1pt. min.). @ -None done What testing was considered but not performed or refused? (CT, X-rays, U/S, lab s)? Why? @ -CT considered but decided against based on mechanism and patient symptoms What meds were considered but not given or refused? Why? @ -None Did you discuss the management of the patient with other professionals (professionals i.e. , PA, MEDICATION ASSISTANT, lab, RT, psych nurse, social media editor, director of field sales, teacher, global chief creative officer, case management social worker)? Give summary @ -No Was smoking cessation discussed for >3mins.? @ -No Was critical care preformed (if so, how long)? @ -No Were there social determinants of health that impacted care today? How? (Homelessness, low income, unemployed, alcoholism, drug addiction, transpor tation, low edu. Level, literacy, decrease access to med. care, penitentiary, rehab)? @ -No Was there de-escalation of care discussed even if they declined (Discuss DNR or withdrawal of care, Hospice)? DNR status @ -No What co-morbidities impacted this encounter? (DM, HTN, Smoking, COPD, CAD, Cancer, CVA, ARF, Chemo, Hep., AIDS, mental health diagnosis, sleep apnea, morbid obesity)? @ -None Was patient admitted / discharged? Hospital course, mention meds given and route, prescriptions, significant lab abnormalities, going to OR and other pertinent info. @ -discharged. Patient presented to the emergency department for evaluation of head injury that occurred at 8:30am at her place of employment. Denies loss of consciousness, headache. Neurologically intact. Discussed CT vs monitoring symptoms. Patient understanding and agreeable with no imaging at this time. Strict return precautions discussed. Patient stable at time of discharge. Case discussed with Dr. Price Undiagnosed new problem with uncertain prognosis? @ -No Drug Therapy requiring intensive monitoring for toxicity (Heparin, Nitro, Insulin, Cardizem)? @ -No Were any procedures done? @ -No Diagnosis/symptom? @ -head injury Acute, or Chronic, or Acute on Chronic? @ -acute Uncomplicated (without systemic symptoms) or Complicated (systemic symptoms)? @ -Uncomplicated Side effects of treatment? @ -No Exacerbation, Progression, or Severe Exacerbation? @ -No Poses a threat to life or bodily function? How? (Chest pain, [place], [place], pneumonia, PE, COPD, DKA, ARF, appy, cholecystitis, CVA, Diverticulitis, Homicidal, Suicidal, threat to staff... and all critical care pts) @ -No Disposition Clinical Impression: Closed head injury Disposition: HOME SELF-CARE Condition: Stable Instructions (If sedation given, give patient instructions): Concussion (ED) Additional Instructions: Please follow up with your primary care provider. Return to the emergency department for new or worsening symptoms as we discussed. Is patient prescribed a controlled substance at d/c from ED?: No Referrals: Kevin Davis MD [Primary Care Provider] - 1-2 days
[2023-11-19 10:40] VITALS: BP 108/73; PULSE 81; RESP 20; TEMP 98
== END 2023-11-19 12:09 | disposition home or self-care (01) ==
LOC: EC 10:09
DX: S09.90XA Unspecified injury of head, initial encounter (principal); J45.909 Unspecified asthma, uncomplicated; F17.200 Nicotine dependence, unspecified, uncomplicated; Z88.6 Allergy status to analgesic agent; X58.XXXA Exposure to other specified factors, initial encounter
CPT/HCPCS: 99283